=== PATIENT | male | born 1935 | race Hispanic/Latino ===

== ENCOUNTER 2016-09-18 08:54 | Outpatient (CLI) | payer MEDICARE, OTHER ==
[2016-09-18 09:55] LABS: Uric Acid 6.1 mg/dL (3.5-7.6)
[2016-09-19 15:05] LABS: Vitamin D, 25-OH, Total 43 ng/mL (30-100)
== END 2016-09-18 08:55 | disposition home or self-care (01) ==
LOC: LABHHL 08:54
PROVIDERS: ATTEND Internal Medicine
DX: I10 Essential (primary) hypertension (principal); E78.00 Pure hypercholesterolemia, unspecified; N32.81 Overactive bladder; Z79.899 Other long term (current) drug therapy
CPT/HCPCS: 36415; 80061; 82306; 83036; 84550

== ENCOUNTER 2018-05-26 10:27 | Outpatient (CLI) | payer MEDICARE, OTHER ==
--- NOTE | 2018-05-26 11:05 | XRay Report ---
ROUTINE CHEST, TWO VIEWS: HISTORY: Pneumonia, cough. No comparison. The trachea, heart, mediastinal contour, lung whitley and bony thorax are unremarkable. A 2-lead pacemaker device appears in good position. IMPRESSION: Unremarkable chest x-ray. No evidence for pneumonia.
== END 2018-05-26 10:28 | disposition home or self-care (01) ==
LOC: XRAY 10:27
PROVIDERS: ATTEND Internal Medicine
DX: J18.9 Pneumonia, unspecified organism (principal); I10 Essential (primary) hypertension; E78.00 Pure hypercholesterolemia, unspecified
CPT/HCPCS: 71046

== ENCOUNTER 2018-08-10 08:07 | Outpatient (CLI) | payer MEDICARE, OTHER ==
[2018-08-10 10:48] LABS: Hematocrit 36.3 % (35.5-45.6); Hemoglobin 12.5 gm/dl (11.8-15.2); Mean Corpuscular HGB Conc 34 % (32-34); Mean Corpuscular Volume 103 fl (84-94); Platelet Count 314 K/mm3 (140-440); Red Blood Count 3.53 M/mm3 (3.65-5.03); Red Cell Distribution Width 16.4 % (13.2-15.2)
[2018-08-10 11:07] LABS: Calcium 9.1 mg/dL (8.4-10.2)
[2018-08-13 13:27] LABS: Vitamin D, 25-OH, D2 <4 ng/mL
== END 2018-08-10 08:08 | disposition home or self-care (01) ==
LOC: LAB 08:07
PROVIDERS: ATTEND Internal Medicine
DX: Z13.1 Encounter for screening for diabetes mellitus (principal); Z13.21 Encounter for screening for nutritional disorder; E78.00 Pure hypercholesterolemia, unspecified; I10 Essential (primary) hypertension; R79.89 Other specified abnormal findings of blood chemistry
CPT/HCPCS: 36415; 80048; 82306; 82607; 83036; 85027

== ENCOUNTER 2018-09-01 08:09 | Outpatient (CLI) | payer MEDICARE, OTHER ==
--- NOTE | 2018-09-01 14:15 | Vascular Lab Report ---
DUPLEX DOPPLER LOWER EXTREMITY ARTERIAL, BILATERAL INDICATION: PERIPHERAL VASCULAR DISEASE. TECHNIQUE: Arterial duplex examination of both lower extremities performed using B-mode, color flow and spectral Doppler assessment. FINDINGS: RIGHT: Common Femoral Artery: PSV 75 cm/sec. Triphasic waveform. Proximal SFA: PSV 121 cm/sec. Triphasic waveform. Mid SFA: PSV 109 cm/sec. Triphasic waveform. Distal SFA: PSV 67 cm/sec. Triphasic waveform. Popliteal artery: PSV 102 cm/sec. Biphasic waveform. Posterior tibial artery: PSV 102 cm/sec. Biphasic waveform. Dorsalis Pedis Artery: PSV 65 cm/sec. Biphasic waveform. LEFT: Common Femoral Artery: PSV 86 cm/sec. Triphasic waveform. Proximal SFA: PSV 94 cm/sec. Triphasic waveform. Mid SFA: PSV 75 cm/sec. Triphasic waveform. Distal SFA: PSV 49 cm/sec. Triphasic waveform. Popliteal artery: PSV 55 cm/sec. Triphasic waveform. Posterior tibial artery: PSV 102 cm/sec. Biphasic waveform. Dorsalis Pedis Artery: PSV 43 cm/sec. Biphasic waveform. IMPRESSION: 1. There is hemodynamically significant peripheral vascular disease on the basis of clear transition from triphasic signal to biphasic along the vascular tree. Doppler Waveform: * Triphasic is normal. * Biphasic is abnormal if clear transition from triphasic signal along vascular tree. * Monophasic is abnormal. Signer Name: Yayo Lang MD Signed: 09/01/2018 2:10 PM Workstation Name: [id number]
== END 2018-09-01 08:10 | disposition home or self-care (01) ==
LOC: VAS 08:09
PROVIDERS: ATTEND Internal Medicine
DX: I73.9 Peripheral vascular disease, unspecified (principal); I10 Essential (primary) hypertension; E78.00 Pure hypercholesterolemia, unspecified
CPT/HCPCS: 93925

== ENCOUNTER 2018-12-24 08:27 | Outpatient (CLI) | payer MEDICARE, OTHER ==
[2018-12-24 10:52] LABS: Chol/HDL Ratio 4.45 %
== END 2018-12-24 08:28 | disposition home or self-care (01) ==
LOC: LAB 08:27
PROVIDERS: ATTEND Internal Medicine
DX: Z13.29 Encounter for screening for other suspected endocrine disorder (principal); E78.5 Hyperlipidemia, unspecified; E78.00 Pure hypercholesterolemia, unspecified; I73.9 Peripheral vascular disease, unspecified; I10 Essential (primary) hypertension
CPT/HCPCS: 36415; 80061; 84443

== ENCOUNTER 2021-10-16 12:29 | Outpatient (CLI) | payer MEDICARE, OTHER ==
[2021-10-16 12:50] LABS: Hematocrit 37.8 % (35.5-45.6); Hemoglobin 12.6 gm/dl (11.8-15.2); Mean Corpuscular HGB Conc 33 % (32-34); Mean Corpuscular Volume 105 fl (84-94); Platelet Count 279 K/mm3 (140-440); Red Blood Count 3.61 M/mm3 (3.65-5.03); Red Cell Distribution Width 16.2 % (13.2-15.2)
[2021-10-16 13:13] LABS: Albumin 4.3 g/dL (3.9-5); Calcium 9.3 mg/dL (8.4-10.2); Chol/HDL Ratio 4.32 %
[2021-10-16 15:07] LABS: Basophils % (Manual) 0 % (0.0-1.8); Poikilocytosis Few; Total Cells Counted 100
[2021-10-16 15:08] LABS: Platelet Estimate Consistent w Auto
== END 2021-10-16 12:30 | disposition home or self-care (01) ==
LOC: LABHHL 12:29
PROVIDERS: ATTEND Internal Medicine
DX: E55.9 Vitamin D deficiency, unspecified (principal); R73.9 Hyperglycemia, unspecified; I10 Essential (primary) hypertension; E78.5 Hyperlipidemia, unspecified
CPT/HCPCS: 36415; 80053; 80061; 82306; 83036; 84443; 85007; 85025